=== PATIENT | female | born 1980 | race Two or more races ===

== ENCOUNTER 2019-01-10 12:35 | Emergency (ER) | payer OTHER ==
[2019-01-10 12:40] VITALS: BP 137/88; PULSE 95; TEMP 98.2; BMI 28.3
--- NOTE | 2019-01-10 14:43 | PDOC ---
History of Present Illness - General Chief Complaint: Hematuria Stated Complaint: cough, congestion, noticed blood in urine Time Seen by Provider: 01/10/19 14:28 - History of Present Illness Initial Comments: 01/10/19 14:43 38-year-old female with a past medical history significant for asthma seasonal ALLERGIES hypertension presents for evaluation of cold-like symptoms times one month without systemic symptoms and hematuria times one day without back pain Past History - Past Medical History Allergies/Adverse Reactions: Allergies Allergy/AdvReac Type Severity Reaction Status Date / Time No Known Allergies Allergy Verified 01/10/19 14:40 COPD: No Other medical history: policistic kidney dis - Suicide/Smoking/Psychosocial Hx Smoking History: Never smoked Have you smoked in the past 12 months: No Information on smoking cessation initiated: No Hx Alcohol Use: No Drug/Substance Use Hx: No Review of Systems - Review of Systems Constitutional: No: Fever HEENTM: Yes: Nose Congestion Respiratory: Yes: Cough : Yes: Hematuria *Physical Exam - Vital Signs Last Vital Signs Temp Pulse Resp BP Pulse Ox 98.2 F 95 H 17 137/88 97 01/10/19 12:38 01/10/19 12:38 01/10/19 12:38 01/10/19 12:38 01/10/19 12:38 - Physical Exam Comments: 01/10/19 14:43 HEAD: NC/AT EYES: Conjuntiva clear Ears: Canals and TM's normal NOSE: No d/c THROAT: Moist mucous membrances, oral pharanx clear, uvula midline NECK: Supple without adenopathy CARDIAC: S1 S2 LUNGS: CTA Full and Equal breath sounds ABDOMEN: Soft NT ND MS: Full ROM in all joints without edema NEUROLOGIC: No gross sensory or motor deficits, NVID SKIN: Normal color and temperature no lesions or rashes Medical Decision Making - Medical Decision Making 01/10/19 16:10 asymptomatic hematuria, possibly passed stone, recommend urology f/u Zyrte no D and Rhinocort for seasonal allergies with ENT f/u 01/10/19 16:12 *DC/Admit/Observation/Transfer Diagnosis at time of Disposition: Hematuria, Seasonal allergic rhinitis - Discharge Dispostion Disposition: HOME Condition at time of disposition: Stable Decision to Admit order: No - Referrals Referrals: Orlando Manning MD [Primary Care Provider] - Jean Tompkins MD [Staff Physician] - Aroldo Rome MD [Staff Physician] - - Patient Instructions Printed Discharge Instructions: Blood in Urine, DI for Hematuria, Allergic Rhinitis Additional Instructions: Please use the antihistamine and nasal spray as directed. Return to the emergency room for worsening symptoms. Please follow-up with neurology and ENT in one to 2 days for further evaluation and treatment options. - Post Discharge Activity
[2019-01-10 15:41] LABS: HCG,QUALITATIVE URINE Negative
[2019-01-10 16:02] LABS: PH,URINE 6.5 (5.0-8.0); URINE APPEARANCE Turbid; URINE BILIRUBIN Negative (NEGATIVE); URINE COLOR Red; URINE GLUCOSE (UA) Negative (NEGATIVE); URINE KETONE Negative (NEGATIVE); URINE LEUK ESTERASE Trace (NEGATIVE); URINE NITRITE Negative (NEGATIVE); URINE PROTEIN 3+ (NEGATIVE); URINE UROBILINOGEN 0.2 mg/dL (0.2-1.0)
[2019-01-10 16:07] LABS: EPI CELLS 1+ /HPF (0-5/HPF); URINE RBC >100 /hpf (0-4)
== END 2019-01-10 16:33 | disposition home or self-care (01) ==
LOC: JERFT 12:35
DX: J30.2 Other seasonal allergic rhinitis (principal); R31.9 Hematuria, unspecified
CPT/HCPCS: 81003; 84703; 87086; 87186; 99281-25